=== PATIENT | male | born 1985 | race African-American/Black ===

== ENCOUNTER 2019-11-21 22:58 | Emergency (ER) | payer SELFPAY ==
[~2019-11-21] VITALS: Ht 165.1 cm; Wt 102.0 kg
[~2019-11-21 22:58] MED LIST: ALBU2.5V8 NEB; AMLO10TA8 PO; CLON0.3T PO; HYDR-2868 PO; LACT1CAP19 PO; LEVE500T56 PO; METO50TA6 PO
[2019-11-21 23:05] VITALS: BP 170/109
--- NOTE | 2019-11-21 23:13 | PHYS DOC ---
Past Medical History Past Medical History: Hypertension, Seizure Past Surgical History: No Surgical History Smoking Status: Current Every Day Smoker Alcohol Use: None Drug Use: Marijuana Adult General Chief Complaint Chief Complaint: HAND PROBLEM HPI HPI Patient is a 34-year-old male with right hand pain. He states he thinks he injured his hand playing with his dog 25 hours ago. He states the swelling is going down some but not completely. He states it used to bother his thumb now just bothers the spacing between his thumb and index finger. He denies any other injury. He used ice and Epsom salt at home to help with the symptoms. He is also use Tylenol.[] Review of Systems Review of Systems Constitutional: Denies fever or chills [] Eyes: Denies change in visual acuity, redness, or eye pain [] HENT: Denies nasal congestion or sore throat [] Respiratory: Denies cough or shortness of breath [] Cardiovascular: No additional information not addressed in HPI [] GI: Denies abdominal pain, nausea, vomiting, bloody stools or diarrhea [] : Denies dysuria or hematuria [] Musculoskeletal: Per history of present illness] Integument: Denies rash or skin lesions [] Neurologic: Denies headache, focal weakness or sensory changes [] Endocrine: Denies polyuria or polydipsia [] All other systems were reviewed and found to be within normal limits, except as documented in this note. Allergies Allergies Allergies Coded Allergies Type Severity Reaction Last Updated Verified No Known Drug Allergies 07/26/19 No Physical Exam Physical Exam Constitutional: Well developed, well nourished, no acute distress, non-toxic appearance. [] HENT: Normocephalic, atraumatic, bilateral external ears normal, oropharynx moist, no oral exudates, nose normal. [] Eyes: PERRLA, EOMI, conjunctiva normal, no discharge. [] Neck: Normal range of motion, no tenderness, supple, no stridor. [] Cardiovascular:Heart rate regular rhythm, no murmur [] Lungs & Thorax: Bilateral breath sounds clear to auscultation [] Abdomen: Bowel sounds normal, soft, no tenderness, no masses, no pulsatile masses. [] Skin: Warm, dry, no erythema, no rash. [] Back: No tenderness, no CVA tenderness. [] Extremities: After examining the right hand I do not see any significant abnormality including swelling deformity erythema or ecchymosis[] Neurologic: Alert and oriented X 3, normal motor function, normal sensory function, no focal deficits noted. [] Psychologic: Affect normal, judgement normal, mood normal. [] EKG EKG [] Radiology/Procedures Radiology/Procedures [] Course & Med Decision Making Course & Med Decision Making Pertinent Labs and Imaging studies reviewed. (See chart for details) [] Dragon Disclaimer Dragon Disclaimer This electronic medical record was generated, in whole or in part, using a voice recognition dictation system. Departure Departure Impression: Primary Impression: Sprain of right hand Disposition: HOME, SELF-CARE Condition: STABLE Referrals: LIU HUSSEIN JR, MD (PCP) Patient Instructions: Sprain Additional Instructions: Continue to use ice and ibuprofen as needed. Problem Qualifiers Primary Impression: Sprain of right hand Encounter type: initial encounter Qualified Codes: S63.91XA - Sprain of unspecified part of right wrist and hand, initial encounter GONZALES WRIGHT DO Nov 21, 2019 23:13
== END 2019-11-21 23:18 | disposition home or self-care (01) ==
LOC: ER 22:58
DX: S63.91XA Sprain of unspecified part of right wrist and hand, initial encounter (principal); F17.200 Nicotine dependence, unspecified, uncomplicated; X58.XXXA Exposure to other specified factors, initial encounter; Y93.89 Activity, other specified; Y92.098 Other place in other non-institutional residence as the place of occurrence of the external cause
CPT/HCPCS: 99283-25

== ENCOUNTER 2019-12-29 12:50 | Emergency (ER) | payer SELFPAY ==
[~2019-12-29] VITALS: Ht 175.3 cm; Wt 113.6 kg
[2019-12-29 13:19] LABS: BASO # 0.1 x10^3/uL (0.0-0.2); BASO % 1 % (0-3); EOS # 0.1 x10^3/uL (0.0-0.7); EOS % 1 % (0-3); HEMATOCRIT 49.3 % (39.0-53.0); LYMPH # 3.5 x10^3/uL (1.0-4.8); LYMPH % 29 % (24-48); MEAN CORPUSCULAR HEMOGLOBIN 21 pg (25-35); MEAN CORPUSCULAR HGB CONC 31 g/dL (31-37); MEAN CORPUSCULAR VOLUME 69 fL (79-100); MONO # 1.1 x10^3/uL (0.0-1.1); MONO % 9 % (0-9); NEUT # 7.1 x10^3/uL (1.8-7.7); NEUT % 60 % (31-73); PLATELET COUNT 254 x10^3/uL (140-400); RED BLOOD COUNT 7.19 x10^6/uL (4.30-5.70); WHITE BLOOD COUNT 11.9 x10^3/uL (4.0-11.0)
[2019-12-29 13:32] LABS: ALBUMIN 4.6 g/dL (3.4-5.0); CREATININE 1.5 mg/dL (0.7-1.3); GFR 64.8; POTASSIUM 3.3 mmol/L (3.5-5.1); TOTAL BILIRUBIN 0.8 mg/dL (0.2-1.0); TOTAL PROTEIN 9.2 g/dL (6.4-8.2)
[2019-12-29 13:33] LABS: BARBITURATES NEG (NEG); BENZODIAZEPINES NEG (NEG); CANNABINOIDS POS (NEG); COCAINE NEG (NEG); METHADONE NEG (NEG); OPIATES NEG (NEG); PHENCYCLIDINE NEG (NEG)
[2019-12-29 13:34] LABS: AMPHETAMINE/METHAMPHETAMINE NEG (NEG)
[2019-12-29 13:45] LABS: ANISOCYTOSIS SLIGHT; PLT ESTIMATE ADEQUATE (ADEQUATE)
[2019-12-29] MEDS ORDERED: IV NORMAL SALINE 1000ML BAG 1,000 ML IV ONE (13:45)
[2019-12-29 13:46] LABS: MICROCYTOSIS SLIGHT; POIKILOCYTOSIS SLIGHT
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
[2019-12-29 15:58] VITALS: BP 169/98
[2019-12-29 17:27] LABS: BASE EXCESS ABG -5 mmol/L (-3-3); HCO3 ABG 19 mmol/L (21-28); PCO2 ABG 33 mmHg (35-46); PO2 ABG 81 mmHg (85-108); SAT O2 ABG 96 % (92-99)
[2019-12-29 17:41] LABS: FIO2 ABG 21
== END 2019-12-29 16:00 | disposition home or self-care (01) ==
LOC: ER 12:50
DX: R56.9 Unspecified convulsions (principal); R41.0 Disorientation, unspecified; I10 Essential (primary) hypertension; F17.200 Nicotine dependence, unspecified, uncomplicated; F12.90 Cannabis use, unspecified, uncomplicated
CPT/HCPCS: 36415; 80053; 80307; 82805; 85025; 96361; 96374; 99285; J2060; J7030

== ENCOUNTER 2020-11-01 08:26 | Emergency (ER) | payer SELFPAY ==
[~2020-11-01] VITALS: Ht 172.7 cm; Wt 100.0 kg
[~2020-11-01 08:26] MED LIST changes: +AMLO-187 PO; -AMLO10TA8 PO
--- NOTE | 2020-11-01 08:39 | PHYS DOC ---
Past Medical History Past Medical History: Hypertension, Seizure Additional Past Medical Histor: PT POOR HISTORIAN Past Surgical History: No Surgical History Additional Past Surgical Histo: PT POOR HISTORIAN Smoking Status: Current Every Day Smoker Alcohol Use: None Drug Use: Marijuana General Adult HPI: HPI: 35 yo AA male past medical history of hypertension, seizure disorder on Keppra (since 2019), marijuana use with history of rhabdomyolysis in 2019, presents to the ED brought in by EMS after mother called 911, concern for witnessed seizure that lasted for approximately 2 minutes, with postictal by EMS. In ED patient complains of a headache and states " help me." Is restless and stands in ed room to void. Knows where he's at but cannot state month/year. Smells of thc but denies alcohol or drug use. Review of Systems: Review of Systems: Constitutional: Denies fever or chills. [] Eyes: Denies change in visual acuity. [] HENT: Denies nasal congestion or sore throat. [] Respiratory: Denies cough or shortness of breath. [] Cardiovascular: Denies chest pain or edema. [] GI: Denies abdominal pain, nausea, vomiting, bloody stools or diarrhea. [] : Denies dysuria. [] Musculoskeletal: Denies back pain or joint pain. [] Integument: Denies rash, or skin color changes Neurologic: Denies neck stiffness or pain, focal weakness or sensory changes. [] Endocrine: Denies polyuria or polydipsia. [] Lymphatic: Denies swollen glands. [] Psychiatric: Denies depression or anxiety. [] Heart Score: C/O Chest Pain: No Risk Factors: Risk Factors: DM, Current or recent (<one month) smoker, HTN, HLP, family history of CAD, obesity. Risk Scores: Score 0 - 3: 2.5% MACE over next 6 weeks - Discharge Home Score 4 - 6: 20.3% MACE over next 6 weeks - Admit for Clinical Observation Score 7 - 10: 72.7% MACE over next 6 weeks - Early Invasive Strategies Allergies: Allergies: Allergies Coded Allergies Type Severity Reaction Last Updated Verified No Known Drug Allergies 07/26/19 No Physical Exam: PE: Constitutional: restless.constantly moving in ed-requires verbal re-direction, trying to sleep once in stretcher, not the most cooperative but eventually responds to commands HENT: Normocephalic, atraumatic, moist mucous membranes with no oral lacerations Eyes: pupils 4mm and reaction bl, EOMI, conjunctiva normal, no discharge. Neck: Normal range of motion, supple, Cardiovascular: S1/2 present, tachycardic Lungs & Thorax: Speaking in full sentences, bilateral equal chest rise, no tachypnea or increased work of breathing Abdomen: soft, no tenderness, obese, no urinary or bowel incontinence Skin: Warm, no rash, diaphoretic forehead/neck Back: No midline tenderness, no CVA tenderness. [] Extremities: No tenderness, no cyanosis, no lower extremity edema Neurologic: Alert, normal motor function, normal sensory function, no focal deficits noted. [] Psychologic: Affect normal, calm mood : yellow clear urine, no gross blood EKG: EKG: Sinus tachycardia 108 bpm, no axis deviation, QTC prolonged 459, T wave inversion lead III, no ST elevations or ST depressions, S1Q3T3 present Radiology/Procedures: Radiology/Procedures: Signed PATIENT: DARYL VENTURA EACCOUNT: [id number] : 1985 LOCATION: ER AGE: 35 SEX: M EXAM STATUS: PRE ER ORD. PHYSICIAN: HERNANDO COTTRELL DO REASON: seizure PROCEDURE: PORTABLE CHEST 1V AP chest. HISTORY: Seizure AP view was taken of the chest. There is no pneumothorax or pleural effusion. Lungs are clear. Heart is normal in size. IMPRESSION: 1. No acute chest disease. Electronically signed by: Cj Nichole MD (11/01/2020 8:56 AM) [id number] DICTATED and SIGNED BY: CJ NICHOLE MD DATE: 11/01/20 [id number] 0 IMAGING REPORT Signed PATIENT: DARLY VENTURA EACCOUNT: [id number] : 1985 LOCATION: ER AGE: 35 SEX: M EXAM STATUS: REG ER ORD. PHYSICIAN: HERNANDO COTTRELL DO REASON: headache PROCEDURE: CT HEAD WO CONTRAST EXAM: CT head without contrast INDICATION: Headache COMPARISON: CT head 07/26/2019 TECHNIQUE: Axial CT imaging through the head without intravenous contrast. One or more of the following individualized dose reduction techniques were utilized for this examination: 1. Automated exposure control 2. Adjustment of the mA and/or kV according to patient size 3. Use of iterative reconstruction technique. FINDINGS: No intracranial hemorrhage, acute infarct, or mass lesion. The ventricles and sulci are normal. Calvarium is intact. The visualized paranasal sinuses and mastoid air cells are clear. Globes and orbits are intact. IMPRESSION: No acute intracranial abnormality. Electronically signed by: Shonna Whitney MD (11/01/2020 9:31 AM) [id number] DICTATED and SIGNED BY: SHONNA WHITNEY MD DATE: 11/01/20 [id number] 0 Course & Med Decision Making: Course & Med Decision Making Pertinent Labs and Imaging studies reviewed. (See chart for details) Labs show CKD, creatinine prior was 1.4 more than 6 months ago. CK slightly elevated in the 600s. No leukocytosis. Marijuana positive on drug screen. AG 18 with LA. Bicarb 20. Hyperglycemia. 3L NS bolus and keppra given in ed. will discharge home with strict ED return precautions were given for []. Encouraged urgent outpatient follow-up with PMD and neurology. Life-threatening processes were considered but are low suspicion at this time, given history, physical exam and ED workup. Pt was educated on all prescription medications and adverse effects. All patient's questions were answered and pt was stable at time of discharge. Life/limb-threatening differential includes but is not limited to, intracranial hemorrhage, diffuse axonal injury, spinal cord syndrome, unstable cervical fracture or SCIWORA, fractures or joint dislocations, neurovascular injuries, organ injury or laceration, pneumothorax, pneumoperitoneum, pericardial tamponade, unstable pelvic fracture, compartment syndrome, flail chest or respiratory distress, burn injury or asphyxiation I spoken with the patient and her caregivers. I explained the patient's condition, diagnoses and treatment plan based on the information available to me at this time. I have answered the patient and her caregiver's questions and addressed any concerns. The patient and her caregivers have a good understanding of patient's diagnosis, condition and treatment plan as can be expected at this point. Vital signs have been stable. Patient's condition is stable and appropriate for discharge from the emergency department. Patient will pursue further outpatient evaluation with primary care physician or other designated or consulting physician as outlined in the discharge instructions. The patient and/or caregivers are agreeable to this plan of care and follow-up instructions have been explained in detail. The patient and/or caregivers have received these instructions in written form and have expressed an understanding of the discharge instructions. The patient and/or caregivers are aware that any significant change of condition or worsening of symptoms should prompt immediate return to this or the closest emergency department or call to 1. Rohit Disclaimer: Rohit Disclaimer: This electronic medical record was generated, in whole or in part, using a voice recognition dictation system. Departure Departure Impression: Primary Impression: Seizure disorder Additional Impression: Marijuana use Disposition: 01 DC HOME SELF CARE/HOMELESS Condition: STABLE Referrals: LIU HUSSEIN JR, MD (PCP) within 1-3 days for re-evaluation Patient Instructions: Marijuana Abuse-Brief, Seizure, Adult Additional Instructions: FOLLOW UP WITH NEUROLOGY: For seizure disorder management [facility] Address: [address] [place] [address] EMERGENCY DEPARTMENT GENERAL DISCHARGE INSTRUCTIONS Thank you for coming to [facility] Emergency Department (ED) today and trusting us with you care. We trust that you had a positive experience in our Emergency Department. If you wish to speak to the department management, you may call the Director at [phone]. YOUR FOLLOW UP INSTRUCTIONS ARE FOLLOWS: 1. Do you have a private Doctor? If you do not have a private doctor, please ask for a resource list of physicians or clinics that may be able to assist you with follow up care. 2. The Emergency Physicain has interpreted your x-rays. The X-Ray specialist will also review them. If there is a change in the findings, you will be notified in 48 hours when at all possible. 3. A lab test or culture has been done, your results will be reviewed and you will be notified if you need a change in treatment. ADDITIONAL INSTRUCTIONS AND INFORMATION: 1. Your care today has been supervised by a physician who is specially trained in emergency care. Many problems require more than one evaluation for a complete diagnosis and treatment. We recommend that you schedule your follow up appointment as recommended to ensure complete treatment of you illness or injury. If you are unable to obtain follow up care and continue to have a problem, or if your condition worsens, we recommend that you return to the ED. 2. We are not able to safely determine your condition over the phone nor are we able to give sound medical advice over the phone. For these safety reasons, if you call for medical advice we will ask you to come to the ED for further evaluation. 3. If you have any questions regarding these discharge instructions please call the ED at [phone]. SAFETY INFORMATION: In the interest of safety, wellness, and injury prevention; we encourage you to wear your sealbelt, if you smoke; quite smoking, and we encourage family to use a protective helmet for bicycling and other sporting events that present an increased risk for head injury. IF YOUR SYMPTOMS WORSEN OR NEW SYMPTOMS DEVELOP, OR YOU HAVE CONCERNS ABOUT YOUR CONDITION; OR IF YOUR CONDITION WORSENS WHILE YOU ARE WAITING FOR YOUR FOLLOW UP APPOINTMENT; EITHER CONTACT YOUR PRIMARY CARE DOCTOR, THE PHYSICIAN WHOSE NAME AND NUMBER YOU WERE GIVEN, OR RETURN TO THE ED IMMEDIATELY. [facility]ITAL[facility]NAND[facility] DO Nov 01, 2020 08:39
[2020-11-01] MEDS ORDERED: IV NORMAL SALINE 1000ML BAG 1,000 ML IV ONE ×3 (08:45→10:00)
--- NOTE | 2020-11-01 08:59 | RAD ---
AP chest. HISTORY: Seizure AP view was taken of the chest. There is no pneumothorax or pleural effusion. Lungs are clear. Heart is normal in size. IMPRESSION: 1. No acute chest disease. Electronically signed by: Cj Nichole MD (11/01/2020 8:56 AM) [id number]
[2020-11-01] MEDS ORDERED: PROCHLORPERAZINE 10 MG/2 ML VIAL. IV ONE (09:00)
[2020-11-01] MEDS ORDERED: DEXAMETHASONE SOD PHOS 20 MG/5 ML VIAL. IV ONE (09:00)
[2020-11-01] MEDS ORDERED: diphenhydrAMINE 50 MG/ML VIAL IVP ONE (09:00)
[2020-11-01] MEDS ORDERED: levETIRAcetam 1,000 MG in IV DEXTROSE 5% 100ML 100 ML IV ONE (09:00)
[2020-11-01 09:20] LABS: BASO # 0.1 x10^3/uL (0.0-0.2); BASO % 1 % (0-3); EOS # 0.2 x10^3/uL (0.0-0.7); EOS % 2 % (0-3); HEMATOCRIT 44.9 % (39.0-53.0); HEMOGLOBIN 14.2 g/dL (13.0-17.5); LYMPH # 2.1 x10^3/uL (1.0-4.8); LYMPH % 20 % (24-48); MEAN CORPUSCULAR HEMOGLOBIN 21 pg (25-35); MEAN CORPUSCULAR HGB CONC 32 g/dL (31-37); MEAN CORPUSCULAR VOLUME 68 fL (79-100); MONO # 0.9 x10^3/uL (0.0-1.1); MONO % 8 % (0-9); NEUT # 7.2 x10^3/uL (1.8-7.7); NEUT % 69 % (31-73); PLATELET COUNT 203 x10^3/uL (140-400); RED BLOOD COUNT 6.62 x10^6/uL (4.30-5.70); RED CELL DISTRIBUTION WIDTH 16.5 % (11.5-14.5); WHITE BLOOD COUNT 10.4 x10^3/uL (4.0-11.0)
[2020-11-01 09:22] LABS: BILIRUBIN,URINE NEGATIVE (NEG); CLARITY,URINE CLEAR; COLOR,URINE YELLOW; NITRITE,URINE NEGATIVE (NEG); PH,URINE 6.5 (<5.0-8.0); PROTEIN,URINE 100 mg/dL (NEG-TRACE); UROBILINOGEN,URINE 0.2 mg/dL (0.2 mg/dL)
[2020-11-01 09:27] LABS: BACTERIA,URINE 0 /HPF (0-FEW); RBC,URINE 0 /HPF (0-2); WBC,URINE 0 /HPF (0-4)
[2020-11-01 09:32] LABS: BARBITURATES NEG (NEG); BENZODIAZEPINES NEG (NEG); CANNABINOIDS POS (NEG); COCAINE NEG (NEG); METHADONE NEG (NEG); OPIATES NEG (NEG); PHENCYCLIDINE NEG (NEG)
[2020-11-01 09:33] LABS: AMPHETAMINE/METHAMPHETAMINE NEG (NEG)
--- NOTE | 2020-11-01 09:33 | RAD ---
EXAM: CT head without contrast INDICATION: Headache COMPARISON: CT head 07/26/2019 TECHNIQUE: Axial CT imaging through the head without intravenous contrast. One or more of the following individualized dose reduction techniques were utilized for this examinat ion: 1. Automated exposure control 2. Adjustment of the mA and/or kV according to patient size 3. Use of iterative reconstruction technique. FINDINGS: No intracranial hemorrhage, acute infarct, or mass lesion. The ventricles and sulci are normal. Karan rium is intact. The visualized paranasal sinuses and mastoid air cells are clear. Globes and orbits a re intact. IMPRESSION: No acute intracranial abnormality. Electronically signed by: Shonna Whitney MD (11/01/2020 9:31 AM) [id number]
[2020-11-01 09:35] LABS: CALCIUM 8.4 mg/dL (8.5-10.1); CREATININE 1.4 mg/dL (0.7-1.3); GFR 69.8; POTASSIUM 3.5 mmol/L (3.5-5.1)
[2020-11-01 09:41] LABS: ALBUMIN 4.3 g/dL (3.4-5.0); ALBUMIN/GLOBULIN RATIO 1.2 (1.0-1.7); MAGNESIUM 2.6 mg/dL (1.8-2.4); TOTAL BILIRUBIN 0.5 mg/dL (0.2-1.0); TOTAL PROTEIN 7.9 g/dL (6.4-8.2)
[2020-11-01 09:42] LABS: ANISOCYTOSIS SLIGHT; PLT ESTIMATE ADEQUATE (ADEQUATE)
--- NOTE | 2020-11-01 10:02 | EKG ---
[facility] [address] [place] [address] Test Date: 2020-11-01 Test Time: 09:14:55 Pat Name: DARYL VENTURA Department: Room: Gender: M High Value Associate: : 1985 Requested By: HERNANDO COTTRELL Order Number: [id number] Reading MD: Measurements Intervals [place] Rate: 108 P: 194 MA: 148 QRS: 89 QRSD: 90 T: 39 QT: 340 QTc: 459 Interpretive Statements SINUS TACHYCARDIA LEFT ATRIAL ABNORMALITY ABNORMAL ECG RI6.02 No previous ECG available for comparison
--- NOTE | 2020-11-01 11:40 | RAD ---
3 view study of the right shoulder Clinical indications: Right shoulder pain. FINDINGS: No acute fracture or dislocation or lytic process is evident. No AC joint separation is see n. 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 IMPRESSION: No acute osseous abnormality. Electronically signed by: Jatinder Salinas MD (11/01/2020 11:37 AM) [id number]
[2020-11-01 11:57] LABS: CALCIUM 7.7 mg/dL (8.5-10.1); CREATININE 1.1 mg/dL (0.7-1.3); GFR 92.2; POTASSIUM 3.6 mmol/L (3.5-5.1)
[2020-11-01 13:00] VITALS: BP 144/90
== END 2020-11-01 13:23 | disposition home or self-care (01) ==
LOC: ER 08:26
DX: G40.909 Epilepsy, unspecified, not intractable, without status epilepticus (principal); I10 Essential (primary) hypertension; F17.200 Nicotine dependence, unspecified, uncomplicated
CPT/HCPCS: 36415; 70450; 71045; 73030; 80048; 80053; 80307; 81001; 82550; 82962; 83605; 83735; 84484; 85025; 87040; 93005; 96361; 96365; 96375; 99285; G0480; J0780; J1100; J1200; J1953; J7030; J7060

== ENCOUNTER 2021-04-06 10:17 | Emergency (ER) | payer MEDICAID ==
[~2021-04-06] VITALS: Ht 165.1 cm; Wt 101.0 kg
--- NOTE | 2021-04-06 11:38 | RAD ---
INDICATION: Reason: cough / Spl. Instructions: / History: COMPARISON: November 01, 2020 FINDINGS: Single view of chest obtained. Cardiac silhouette is enlarged. Relative opacity at left lung base without consolidation elsewhere in the lungs. IMPRESSION: * Enlarged cardiac silhouette. * Relative opacity at the left lung base which could be secondary to overlap of structures and atele ctasis but cannot exclude infiltrate within the region. No consolidation elsewhere in the lungs. Electronically signed by: Adarsh Javed MD (04/06/2021 11:36 AM) [id number]
[2021-04-06] MEDS ORDERED: ONDANSETRON PF 4 MG/2 ML VIAL. IVP ONE (12:00)
[2021-04-06] MEDS ORDERED: IV NORMAL SALINE 1000ML BAG 1,000 ML IV ONE (12:15)
[2021-04-06 13:15] LABS: BASO # 0.1 x10^3/uL (0.0-0.2); BASO % 1 % (0-3); EOS % 0 % (0-3); HEMATOCRIT 49.3 % (39.0-53.0); LYMPH # 0.9 x10^3/uL (1.0-4.8); LYMPH % 8 % (24-48); MEAN CORPUSCULAR HEMOGLOBIN 22 pg (25-35); MEAN CORPUSCULAR HGB CONC 33 g/dL (31-37); MEAN CORPUSCULAR VOLUME 67 fL (79-100); MONO # 0.5 x10^3/uL (0.0-1.1); MONO % 5 % (0-9); NEUT # 9.5 x10^3/uL (1.8-7.7); NEUT % 86 % (31-73); PLATELET COUNT 252 x10^3/uL (140-400); RED BLOOD COUNT 7.36 x10^6/uL (4.30-5.70); RED CELL DISTRIBUTION WIDTH 16.3 % (11.5-14.5)
[2021-04-06 13:22] LABS: CALCIUM 9.3 mg/dL (8.5-10.1); CREATININE 1.3 mg/dL (0.7-1.3); POTASSIUM 3.2 mmol/L (3.5-5.1)
[2021-04-06 13:37] LABS: ALBUMIN 4.8 g/dL (3.4-5.0); ALBUMIN/GLOBULIN RATIO 1.2 (1.0-1.7); TOTAL BILIRUBIN 0.7 mg/dL (0.2-1.0); TOTAL PROTEIN 8.9 g/dL (6.4-8.2)
[2021-04-06 13:45] LABS: INFLUENZA A PATIENT NEGATIVE (NEGATIVE)
[2021-04-06] MEDS ORDERED: IOHEXOL 300 MG/ML 100ML VIAL. IV ONE (13:45)
[2021-04-06] MEDS ORDERED: CONTRAST GIVEN. MC PRN (13:45)
[2021-04-06 13:46] LABS: INFLUENZA B PATIENT NEGATIVE (NEGATIVE)
[2021-04-06 13:59] LABS: BILIRUBIN,URINE NEGATIVE (NEG); CLARITY,URINE CLEAR; COLOR,URINE YELLOW; NITRITE,URINE NEGATIVE (NEG); PH,URINE 6.5 (<5.0-8.0); PROTEIN,URINE 100 mg/dL (NEG-TRACE); UROBILINOGEN,URINE 0.2 mg/dL (0.2 mg/dL)
[2021-04-06 14:08] LABS: BACTERIA,URINE 0 /HPF (0-FEW); RBC,URINE 0 /HPF (0-2); WBC,URINE OCC /HPF (0-4)
[2021-04-06] MEDS ORDERED: cloNIDine HCL 0.1 MG TABLET PO ONE (14:15)
[2021-04-06 14:18] LABS: % BANDS 2 % (0-9); % BASOS 1 % (0-3); % LYMPHS 7 % (24-48); % MONOS 5 % (0-10); % SEGS 85 % (35-66); PLT ESTIMATE ADEQUATE (ADEQUATE)
[2021-04-06 14:19] LABS: HYPOCHROMIA SLIGHT; MICROCYTOSIS MARKED
[2021-04-06 14:20] VITALS: BP 180/100
[2021-04-06 14:20] LABS: ANISOCYTOSIS SLIGHT; POLYCHROMASIA SLIGHT; TARGET CELLS FEW
--- NOTE | 2021-04-06 15:06 | RAD ---
INDICATION: Reason: abdominal pain, nausea, vomiting / Spl. Instructions: omni 300 75ml / History: . COMPARISON: None. TECHNIQUE: Axial CT images obtained through the abdomen and pelvis with contrast. One or more of the following individualized dose reduction techniques were utilized for this examinat ion: 1. Automated exposure control; 2. Adjustment of the mA and/or kV according to patient size; 3 . Use of iterative reconstruction technique. FINDINGS: Small hiatal hernia versus mild distention of the distal esophagus. Abdominal aorta is not aneurysmal. Liver is mildly low density which can be seen with fatty infiltration. No peripancreatic fluid collection. Spleen is unremarkable. There is some thickening of the left adrenal gland. Low-density lesion of the left kidney which does not measure as a simple cyst measuring approximately 18 mm. There is an additional subcentimeter left renal lesion which appears higher than simple density. Urinary bladder is partially distended. No hydronephrosis. Colonic diverticulosis. No periappendiceal inflammatory changes. There is some degenerative changes of the spine. Mild wedging of T11, T12 and L1. Transitional anatom y. IMPRESSION: * No evidence of bowel obstruction or appendicitis. * No hydronephrosis. * Low-density left renal lesions which do not measure as simple cyst. Nonemergent ultrasound could f urther evaluate to assess whether these are solid or cystic in nature. Electronically signed by: Adarsh Javed MD (04/06/2021 3:04 PM) [id number]
--- NOTE | 2021-04-06 15:46 | PHYS DOC ---
Past Medical History Past Medical History: Hypertension, Seizure Additional Past Medical Histor: PT POOR HISTORIAN Past Surgical History: No Surgical History, Other Additional Past Surgical Histo: Pt denies. Smoking Status: Current Every Day Smoker Alcohol Use: Occasionally Drug Use: Marijuana General Adult EDM: Chief Complaint: FLU SYMPTOM HPI: HPI: Patient is a 35 year old male who present to ER for evaluation of flulike symptoms when he woke up this morning. Patient complains of body aches, chills, cough. Patient was not vaccinated for COVID-19. Patient denies any chest pain or any trouble breathing. Patient also complained of nausea and abdominal pain. Patient has history of hypertension and seizure disorder, he is on Keppra and clonidine. Patient said he has been ran out of his clonidine for 3 days. Patient has prescription ready to sisal picker at pharmacy for his clonidine. Review of Systems: Review of Systems: Constitutional: Denies fever, positive chills Eyes: Denies change in visual acuity. [] HENT: Denies nasal congestion or sore throat. [] Respiratory: Positive for cough, no trouble breathing Cardiovascular: Denies chest pain or edema. [] GI: Positive for abdominal pain with nausea vomiting. : Denies dysuria. [] Musculoskeletal: Denies back pain or joint pain. [] Integument: Denies rash. [] Neurologic: Denies headache, focal weakness or sensory changes. [] Endocrine: Denies polyuria or polydipsia. [] Lymphatic: Denies swollen glands. [] Psychiatric: Denies depression or anxiety. [] Heart Score: C/O Chest Pain: N/A Risk Factors: Risk Factors: DM, Current or recent (<one month) smoker, HTN, HLP, family history of CAD, obesity. Risk Scores: Score 0 - 3: 2.5% MACE over next 6 weeks - Discharge Home Score 4 - 6: 20.3% MACE over next 6 weeks - Admit for Clinical Observation Score 7 - 10: 72.7% MACE over next 6 weeks - Early Invasive Strategies Current Medications: Current Medications Medications (Trade) Dose Ordered Sig/Adan Start Time Stop Time Status Last Admin Dose Admin Clonidine HCl (Catapres) 0.2 mg 1X ONCE 04/06/21 14:15 04/06/21 14:16 DC 04/06/21 14:20 0.2 MG Info (CONTRAST GIVEN -- Rx MONITORING) 1 each PRN DAILY PRN 04/06/21 13:45 04/08/21 13:44 Iohexol (Omnipaque 300 Mg/ml) 75 ml 1X ONCE 04/06/21 13:45 04/06/21 13:46 DC 04/06/21 13:45 75 ML Ondansetron HCl (Zofran) 4 mg 1X ONCE 04/06/21 12:00 04/06/21 12:01 DC 04/06/21 12:57 4 MG Sodium Chloride 1,000 ml @ 1,000 mls/hr 1X ONCE 04/06/21 12:15 04/06/21 13:14 DC 04/06/21 12:57 1,000 MLS/HR Allergies: Allergies: Allergies Coded Allergies Type Severity Reaction Last Updated Verified No Known Drug Allergies 07/26/19 No Physical Exam: PE: Constitutional: Well developed, well nourished, no acute distress, non-toxic appearance. [] HENT: Normocephalic, atraumatic, bilateral external ears normal, oropharynx moist, no oral exudates, nose normal. [] Eyes: PERRLA, EOMI, conjunctiva normal, no discharge. [] Neck: Normal range of motion, no tenderness, supple, no stridor. [] Cardiovascular:Heart rate regular rhythm, no murmur [] Lungs & Thorax: Bilateral breath sounds clear to auscultation [] Abdomen: Bowel sounds normal, soft, no tenderness, no masses, no pulsatile masses. [] Skin: Warm, diaphoresis, no rash Back: No tenderness, no CVA tenderness. [] Extremities: No tenderness, no cyanosis, no clubbing, ROM intact, no edema. [] Neurologic: Alert and oriented X 3, normal motor function, normal sensory function, no focal deficits noted. [] Psychologic: Affect normal, judgement normal, mood normal. [] Current Patient Data: Labs: Laboratory Tests Test 04/06/21 10:37 04/06/21 12:47 04/06/21 13:25 SARS-CoV-2 Antigen (Rapid) Negative (NEGATIVE) White Blood Count 11.0 x10^3/uL (4.0-11.0) Red Blood Count 7.36 x10^6/uL (4.30-5.70) H Hemoglobin 16.0 g/dL (13.0-17.5) Hematocrit 49.3 % (39.0-53.0) Mean Corpuscular Volume 67 fL (79-100) L Mean Corpuscular Hemoglobin 22 pg (25-35) L Mean Corpuscular Hemoglobin Concent 33 g/dL (31-37) Red Cell Distribution Width 16.3 % (11.5-14.5) H Platelet Count 252 x10^3/uL (140-400) Neutrophils (%) (Auto) 86 % (31-73) H Lymphocytes (%) (Auto) 8 % (24-48) L Monocytes (%) (Auto) 5 % (0-9) Eosinophils (%) (Auto) 0 % (0-3) Basophils (%) (Auto) 1 % (0-3) Neutrophils # (Auto) 9.5 x10^3/uL (1.8-7.7) H Lymphocytes # (Auto) 0.9 x10^3/uL (1.0-4.8) L Monocytes # (Auto) 0.5 x10^3/uL (0.0-1.1) Eosinophils # (Auto) 0.0 x10^3/uL (0.0-0.7) Basophils # (Auto) 0.1 x10^3/uL (0.0-0.2) Segmented Neutrophils % 85 % (35-66) H Band Neutrophils % 2 % (0-9) Lymphocytes % 7 % (24-48) L Monocytes % 5 % (0-10) Basophils % 1 % (0-3) Platelet Estimate Adequate (ADEQUATE) Polychromasia Slight Hypochromasia Slight Anisocytosis Slight Microcytosis Marked Target Cells Few Sodium Level 140 mmol/L (136-145) Potassium Level 3.2 mmol/L (3.5-5.1) L Chloride Level 102 mmol/L (98-107) Carbon Dioxide Level 26 mmol/L (21-32) Anion Gap 12 (6-14) Blood Urea Nitrogen 14 mg/dL (8-26) Creatinine 1.3 mg/dL (0.7-1.3) Estimated GFR (Cockcroft-Gault) 76.0 BUN/Creatinine Ratio 11 (6-20) Glucose Level 158 mg/dL (70-99) H Calcium Level 9.3 mg/dL (8.5-10.1) Total Bilirubin 0.7 mg/dL (0.2-1.0) Aspartate Amino Transferase (AST) 25 U/L (15-37) Alanine Aminotransferase (ALT) 41 U/L (16-63) Alkaline Phosphatase 92 U/L (46-116) Total Protein 8.9 g/dL (6.4-8.2) H Albumin 4.8 g/dL (3.4-5.0) Albumin/Globulin Ratio 1.2 (1.0-1.7) Lipase 205 U/L (73-393) Influenza Type A Antigen Negative (NEGATIVE) Influenza Type B Antigen Negative (NEGATIVE) Urine Collection Type Unknown Urine Color Yellow Urine Clarity Clear Urine pH 6.5 (<5.0-8.0) Urine Specific [place] 1.020 (1.000-1.030) Urine Protein 100 mg/dL (NEG-TRACE) Urine Glucose (UA) Negative mg/dL (NEG) Urine Ketones (Stick) Negative mg/dL (NEG) Urine Blood Negative (NEG) Urine Nitrite Negative (NEG) Urine Bilirubin Negative (NEG) Urine Urobilinogen Dipstick 0.2 mg/dL (0.2 mg/dL) Urine Leukocyte Esterase Negative (NEG) Urine RBC 0 /HPF (0-2) Urine WBC Occ /HPF (0-4) Urine Squamous Epithelial Cells Few /LPF Urine Bacteria 0 /HPF (0-FEW) Urine Mucus Mod /LPF Laboratory Tests 04/06/21 12:47 Laboratory Tests 04/06/21 12:47 Vital Signs: Vital Signs Date Time Temp Pulse Resp B/P (MAP) Pulse Ox O2 Delivery O2 Flow Rate FiO2 04/06/21 14:20 78 180/100 04/06/21 14:08 24 100 Room Air 04/06/21 10:30 98.3 98.3 EKG: EKG: [] Radiology/Procedures: Radiology/Procedures: [][facility] [address] [place] [address] IMAGING REPORT Signed PATIENT: DARYL VENTURA EACCOUNT: [id number] : 1985 LOCATION: ER AGE: 35 SEX: M EXAM STATUS: REG ER ORD. PHYSICIAN: MINNIE TUCKER DO REASON: abdominal pain, nausea, vomiting PROCEDURE: CT ABD PELV W/ IV CONTRST ONLY INDICATION: Reason: abdominal pain, nausea, vomiting / Spl. Instructions: omni 300 75ml / History: . COMPARISON: None. TECHNIQUE: Axial CT images obtained through the abdomen and pelvis with contrast. One or more of the following individualized dose reduction techniques were utilized for this examination: 1. Automated exposure control; 2. Adjustment of the mA and/or kV according to patient size; 3. Use of iterative reconstruction technique. FINDINGS: Small hiatal hernia versus mild distention of the distal esophagus. Abdominal aorta is not aneurysmal. Liver is mildly low density which can be seen with fatty infiltration. No peripancreatic fluid collection. Spleen is unremarkable. There is some thickening of the left adrenal gland. Low-density lesion of the left kidney which does not measure as a simple cyst measuring approximately 18 mm. There is an additional subcentimeter left renal lesion which appears higher than simple density. Urinary bladder is partially distended. No hydronephrosis. Colonic diverticulosis. No periappendiceal inflammatory changes. There is some degenerative changes of the spine. Mild wedging of T11, T12 and L1. Transitional anatomy. IMPRESSION: * No evidence of bowel obstruction or appendicitis. * No hydronephrosis. * Low-density left renal lesions which do not measure as simple cyst. Nonemergent ultrasound could further evaluate to assess whether these are solid or cystic in nature. Electronically signed by: Mariel Branch MD (04/06/2021 3:04 PM) [id number] DICTATED and SIGNED BY: MARIEL BRANCH MD DATE: 04/06/21 [id number] [facility] [address] [place] [address] IMAGING REPORT Signed PATIENT: DARYL VENTURA EACCOUNT: [id number] : 1985 LOCATION: ER AGE: 35 SEX: M EXAM STATUS: REG ER ORD. PHYSICIAN: MINNIE TUCKER DO REASON: cough PROCEDURE: CHEST AP ONLY INDICATION: Reason: cough / Spl. Instructions: / History: COMPARISON: November 01, 2020 FINDINGS: Single view of chest obtained. Cardiac silhouette is enlarged. Relative opacity at left lung base without consolidation elsewhere in the lungs. IMPRESSION: * Enlarged cardiac silhouette. * Relative opacity at the left lung base which could be secondary to overlap of structures and atelectasis but cannot exclude infiltrate within the region. No consolidation elsewhere in the lungs. Electronically signed by: Mariel Branch MD (04/06/2021 11:36 AM) DESKTOP- [id number] DICTATED and SIGNED BY: MARIEL BRANCH MD DATE: 04/06/21 [id number] 0 Course & Med Decision Making: Course & Med Decision Making Pertinent Labs and Imaging studies reviewed. (See chart for details) Patient is a 35-year-old male who present to ER with cough, chills, flulike symptoms, nausea vomiting and abdominal pain with sweating profusely. Patient is most likely withdrawal from clonidine. His blood pressure was elevated in the ED, patient was given 0.2 mg clonidine p.o. Patient said he felt much better. Patient would like to go home. Patient said he is going to sisal picker prescription for the Klonopin at the pharmacy. Dragon Disclaimer: Dragon Disclaimer: This electronic medical record was generated, in whole or in part, using a voice recognition dictation system. Departure Departure Impression: Primary Impression: Abdominal pain Additional Impressions: Hypertension Person under investigation for COVID-19 Disposition: HOME / SELF CARE / HOMELESS Condition: STABLE Referrals: LIU HUSSEIN JR, MD (PCP) Follow up with your doctor on SATURDAY FOR REEVALUATION Patient Instructions: Abdominal Pain, Hypertension Additional Instructions: Thank you for visiting our Emergency Department. We appreciate you trusting us with your care. If any additional problems come up don't hesitate to return to visit us. Please follow up with your primary care provider so they can plan additional care if needed and know about the problem that you had. If symptoms worsen come back to the Emergency Department. Any concerning symptoms that start such as chest pain, shortness of air, weakness or numbness on one side of the body, running high fevers or any other concerning symptoms return to the ER. MINNIE TUCKER DO Apr 06, 2021 15:46
--- NOTE | 2021-04-08 12:59 | NUR ---
IP: Have attempted to reach pt concerning covid results on 04/07 and 04/08 multiple times and always get a busy signal.
== END 2021-04-06 16:17 | disposition home or self-care (01) ==
LOC: ER 10:17
DX: R10.9 Unspecified abdominal pain (principal); Z20.822 Contact with and (suspected) exposure to COVID-19; R05 Cough; I10 Essential (primary) hypertension; M79.10 Myalgia, unspecified site; F17.200 Nicotine dependence, unspecified, uncomplicated
CPT/HCPCS: 36415; 71045; 74177; 80053; 80177; 81001; 83690; 85007; 85025; 87426; 87804; 96361; 96374; 99285; J2405; J7030; Q9967; U0003; U0005

== ENCOUNTER 2021-06-18 12:33 | Emergency (ER) | payer MEDICAID ==
[~2021-06-18] VITALS: Ht 175.3 cm; Wt 110.0 kg
--- NOTE | 2021-06-18 12:56 | PHYS DOC ---
Past Medical History Past Medical History: Hypertension, Seizure Additional Past Medical Histor: PT POOR HISTORIAN Past Surgical History: No Surgical History Additional Past Surgical Histo: Pt denies. Smoking Status: Current Every Day Smoker Alcohol Use: None Drug Use: Marijuana General Adult EDM: Chief Complaint: SEIZURE HPI: HPI: 36-year-old male past medical history of seizure disorder, presents the ED with his sister, (patient consents to his/her/their knowledge and involvement in pts' medical care), concern for seizure for approximately 3 minutes. Reports he took his blood pressure and seizure medicination (Keppra) earlier this morning but does report smoking marijuana recently. Later reports no acute alcohol use last night, "ray/tequila." Review of Systems: Review of Systems: Constitutional: Denies fever or chills. [] Eyes: Denies change in visual acuity. [] HENT: Denies nasal congestion or sore throat. [] Respiratory: Denies cough or shortness of breath. [] Cardiovascular: Denies chest pain or edema. [] GI: Denies abdominal pain, nausea, vomiting, bloody stools or diarrhea. [] : Denies incontinence or saddle anesthesia Musculoskeletal: Denies back pain or joint pain. [] Integument: Denies rash or diaphoresis Neurologic: Denies headache, neck pain, focal weakness or sensory changes. [] Endocrine: Denies polyuria or polydipsia. [] Lymphatic: Denies swollen glands. [] Psychiatric: Denies depression or anxiety. [] Heart Score: C/O Chest Pain: No Risk Factors: Risk Factors: DM, Current or recent (<one month) smoker, HTN, HLP, family history of CAD, obesity. Risk Scores: Score 0 - 3: 2.5% MACE over next 6 weeks - Discharge Home Score 4 - 6: 20.3% MACE over next 6 weeks - Admit for Clinical Observation Score 7 - 10: 72.7% MACE over next 6 weeks - Early Invasive Strategies Allergies: Allergies: Allergies Coded Allergies Type Severity Reaction Last Updated Verified No Known Drug Allergies 06/18/21 No Physical Exam: PE: Constitutional: Well developed, well nourished, no acute distress, non-toxic appearance, hypertensive on arrival HENT: Normocephalic, atraumatic, no oral bleeding or tongue lacerations Eyes: EOMI, conjunctiva normal, no discharge. Neck: Normal range of motion, supple,Nexus C-spine criteria are negative: There is no post midline tenderness, the patient is not intoxicated, there is a normal level of alertness, there are no focal neurologic deficits and there are no distracting injuries Cardiovascular: S1/2 present, regular rhythm Lungs & Thorax: Speaking in full sentences, bilateral equal chest rise, no ta chypnea or increased work of breathing Abdomen: soft, no tenderness, no incontinence Skin: Warm, dry, no erythema, no rash. [] Back: No midline spinal step-offs or tenderness, no CVA tenderness. [] Extremities: No tenderness, no cyanosis, no lower extremity edema Neurologic: Alert and oriented X 3, normal motor function, normal sensory function, no focal deficits noted. [] Psychologic: Affect normal, judgement normal, mood normal. [] Current Patient Data: Vital Signs: Vital Signs Date Time Temp Pulse Resp B/P (MAP) Pulse Ox O2 Delivery O2 Flow Rate FiO2 06/18/21 12:41 98.7 100 19 203/120 (147) 100 Room Air 98.7 EKG: EKG: [] Radiology/Procedures: Radiology/Procedures: IMAGING REPORT Signed PATIENT: DARYL VENTURA EACCOUNT: [id number] : 1985 LOCATION: ER AGE: 36 SEX: M EXAM STATUS: PRE ER ORD. PHYSICIAN: HERNANDO COTTRELL DO REASON: headache PROCEDURE: CHEST AP ONLY EXAM: Chest, single view. HISTORY: Headache. COMPARISON: 04/06/2021. FINDINGS: A frontal view of the chest is obtained. There is no infiltrate, pleural effusion or pneumothorax. The heart is normal in size. IMPRESSION: No acute pulmonary finding. Electronically signed by: Skylar Macdonald MD (06/18/2021 1:11 PM) [id number] DICTATED and SIGNED BY: SKYLAR MACDONALD MD DATE: 06/18/21 [id number] 0 IMAGING REPORT Signed PATIENT: DARYL VENTURA EACCOUNT: [id number] : 1985 LOCATION: ER AGE: 36 SEX: M EXAM STATUS: PRE ER ORD. PHYSICIAN: HERNANDO COTTRELL DO REASON: seizure, high bp PROCEDURE: CT HEAD WO CONTRAST CT head without contrast dated 06/18/2021 1:22 PM Comparison: 11/01/2020 CLINICAL INDICATION: Seizure TECHNIQUE: Contiguous axial imaging of the head was performed from skull base to vertex. One or more of the following individualized dose reduction techniques were utilized for this examination: 1. Automated exposure control 2. Adjustment of the mA and/or kV according to patient size 3. Use of iterative reconstruction technique. FINDINGS: Ventricles and sulci are within normal limits for age. No midline shift or mass effect. Brain parenchyma is of normal attenuation. No hemorrhage or extra-axial collection. Posterior fossa and brainstem unremarkable. Visualized paranasal sinuses and mastoid air cells are clear. No apparent calvarial abnormality. IMPRESSION: No evidence of acute intracranial abnormality. Electronically signed by: Bolivar Davis MD (06/18/2021 1:25 PM) [id number] DICTATED and SIGNED BY: BOLIVAR DAVIS MD DATE: 06/18/21 [id number] Course & Med Decision Making: Course & Med Decision Making Pertinent Labs and Imaging studies reviewed. (See chart for details) Concern for breakthrough seizure likely related to recent substance abuse inc luding alcohol and marijuana in the setting of chronic renal insufficiency and nonspecific leukocytosis. Anion gap likely related to an elevated lactic acid from recent seizure. Glucose under 200. On reevaluation patient smiling, laughing and admits to drinking alcohol heavily last night. Patient with no active pain or distress. Did not hit his head. I discouraged substance abuse and explained how it decreases seizure threshold. Will discharge home with strict ED return precautions were given for head trauma, repeat seizures, confusion or neurologic deficits. Encouraged urgent outpatient follow-up with PMD, neurology and nephrology. Life-threatening processes were considered but are low suspicion at this time, given history, physical exam and ED workup. Pt was educated on all prescription medications and adverse effects. All patient's questions were answered and pt was stable at time of discharge. Life/limb-threatening differential includes but is not limited to, intracranial hemorrhage, diffuse axonal injury, spinal cord syndrome, unstable cervical fracture or SCIWORA, fractures or joint dislocations, neurovascular injuries, organ injury or laceration, pneumothorax, pneumoperitoneum, pericardial tamponade, unstable pelvic fracture, compartment syndrome, flail chest or respiratory distress, burn injury or asphyxiation I have spoken with the patient and/or caregivers. I explained the patient's condition, diagnoses and treatment plan based on the information available to me at this time. I have answered the patient and/or caregiver's questions and addressed any concerns. The patient and/or caregivers have a good understanding of patient's diagnosis, condition and treatment plan as can be expected at this point. Vital signs have been stable. Patient's condition is stable and appropriate for discharge from the emergency department. Patient will pursue further outpatient evaluation with primary care physician or other designated or consulting physician as outlined in the discharge instructions. The patient and/or caregivers are agreeable to this plan of care and follow-up instructions have been explained in detail. The patient and/or caregivers have received these instructions in written form and have expressed an understanding of the discharge instructions. The patient and/or caregivers are aware that any significant change of condition or worsening of symptoms should prompt immediate return to this or the closest emergency department or call to [facility]. Rohit Disclaimer: Rohit Disclaimer: This electronic medical record was generated, in whole or in part, using a voice recognition dictation system. Departure Departure Impression: Primary Impression: Seizure Additional Impressions: Renal insufficiency Uncontrolled hypertension Disposition: 01 HOME / SELF CARE / HOMELESS Condition: STABLE Referrals: LIU HUSSEIN JR, MD (PCP) Follow-up with your primary care physician in 24 to 48 hours OR FOLLOW UP WITH FAMILY MEDICINE: [address] [facility] [address] [place] [address] Patient Instructions: Hypertension, Kidney Failure, Seizure, Adult Additional Instructions: FOLLOW UP WITH NEUROLOGY: FOR DEFINITIVE MANAGEMENT of epilepsy [facility] [address] [facility], [facility] [address] [place] [address] FOLLOW UP WITH NEPHROLOGY: FOR DEFINITIVE MANAGEMENTof renal disease [facility] [place] [address] [place] [address] EMERGENCY DEPARTMENT GENERAL DISCHARGE INSTRUCTIONS Thank you for coming to [facility] Emergency Department (ED) today and trusting us with you care. We trust that you had a positive experience in our Emergency Department. If you wish to speak to the department management, you may call the Director at [phone]. YOUR FOLLOW UP INSTRUCTIONS ARE FOLLOWS: 1. Do you have a private Doctor? If you do not have a private doctor, please ask for a resource list of physicians or clinics that may be able to assist you with follow up care. 2. The Emergency Physicain has interpreted your x-rays. The X-Ray specialist will also review them. If there is a change in the findings, you will be notified in 48 hours when at all possible. 3. A lab test or culture has been done, your results will be reviewed and you will be notified if you need a change in treatment. ADDITIONAL INSTRUCTIONS AND INFORMATION: 1. Your care today has been supervised by a physician who is specially trained in emergency care. Many problems require more than one evaluation for a complete diagnosis and treatment. We recommend that you schedule your follow up appointment as recommended to ensure complete treatment of you illness or injury. If you are unable to obtain follow up care and continue to have a problem, or if your condition worsens, we recommend that you return to the ED. 2. We are not able to safely determine your condition over the phone nor are we able to give sound medical advice over the phone. For these safety reasons, if you call for medical advice we will ask you to come to the ED for further evaluation. 3. If you have any questions regarding these discharge instructions please call the ED at [phone]. SAFETY INFORMATION: In the interest of safety, wellness, and injury prevention; we encourage you to wear your sealbelt, if you smoke; quite smoking, and we encourage family to use a protective helmet for bicycling and other sporting events that present an increased risk for head injury. IF YOUR SYMPTOMS WORSEN OR NEW SYMPTOMS DEVELOP, OR YOU HAVE CONCERNS ABOUT YOUR CONDITION; OR IF YOUR CONDITION WORSENS WHILE YOU ARE WAITING FOR YOUR FOLLOW UP APPOINTMENT; EITHER CONTACT YOUR PRIMARY CARE DOCTOR, THE PHYSICIAN WHOSE NAME AND NUMBER YOU WERE GIVEN, OR RETURN TO THE ED IMMEDIATELY. HERNANDO COTTRELL DO Jun 18, 2021 12:56
[2021-06-18] MEDS ORDERED: levETIRAcetam 1,000 MG in IV DEXTROSE 5% 100ML 100 ML IV ONE (13:00)
[2021-06-18 13:11] LABS: BASO # 0.1 x10^3/uL (0.0-0.2); BASO % 1 % (0-3); EOS # 0.3 x10^3/uL (0.0-0.7); EOS % 2 % (0-3); HEMATOCRIT 49.5 % (39.0-53.0); LYMPH # 2.8 x10^3/uL (1.0-4.8); LYMPH % 17 % (24-48); MEAN CORPUSCULAR HEMOGLOBIN 22 pg (25-35); MEAN CORPUSCULAR HGB CONC 30 g/dL (31-37); MEAN CORPUSCULAR VOLUME 71 fL (79-100); MONO % 6 % (0-9); NEUT # 12.8 x10^3/uL (1.8-7.7); NEUT % 75 % (31-73); PLATELET COUNT 190 x10^3/uL (140-400); RED BLOOD COUNT 6.97 x10^6/uL (4.30-5.70); RED CELL DISTRIBUTION WIDTH 17.2 % (11.5-14.5)
--- NOTE | 2021-06-18 13:13 | RAD ---
EXAM: Chest, single view. HISTORY: Headache. COMPARISON: 04/06/2021. FINDINGS: A frontal view of the chest is obtained. There is no infiltrate, pleural effusion or pneumo thorax. The heart is normal in size. IMPRESSION: No acute pulmonary finding. Electronically signed by: Skylar Gomez MD (06/18/2021 1:11 PM) [id number]
[2021-06-18 13:19] LABS: ALBUMIN 4.4 g/dL (3.4-5.0); ALBUMIN/GLOBULIN RATIO 1.2 (1.0-1.7); CALCIUM 8.8 mg/dL (8.5-10.1); CREATININE 1.5 mg/dL (0.7-1.3); GFR 64.1; POTASSIUM 3.4 mmol/L (3.5-5.1); TOTAL BILIRUBIN 0.7 mg/dL (0.2-1.0); TOTAL PROTEIN 8.2 g/dL (6.4-8.2)
--- NOTE | 2021-06-18 13:27 | RAD ---
CT head without contrast dated 06/18/2021 1:22 PM Comparison: 11/01/2020 CLINICAL INDICATION: Seizure TECHNIQUE: Contiguous axial imaging of the head was performed from skull base to vertex. One or more of the following individualized dose reduction techniques were utilized for this examinat ion: 1. Automated exposure control 2. Adjustment of the mA and/or kV according to patient size 3. Use of iterative reconstruction technique. FINDINGS: Ventricles and sulci are within normal limits for age. No midline shift or mass effect. Brain parench yma is of normal attenuation. No hemorrhage or extra-axial collection. Posterior fossa and brainstem unremarkable. Visualized paranasal sinuses and mastoid air cells are clear. No apparent calvarial abnormality. IMPRESSION: No evidence of acute intracranial abnormality. Electronically signed by: Bolivar Davis MD (06/18/2021 1:25 PM) [id number]
[2021-06-18 13:32] LABS: BILIRUBIN,URINE NEGATIVE (NEG); CLARITY,URINE CLEAR; COLOR,URINE YELLOW; NITRITE,URINE NEGATIVE (NEG); PROTEIN,URINE >=300 mg/dL (NEG-TRACE); UROBILINOGEN,URINE 0.2 mg/dL (0.2 mg/dL)
[2021-06-18 13:39] LABS: BARBITURATES NEG (NEG); BENZODIAZEPINES NEG (NEG); CANNABINOIDS POS (NEG); COCAINE NEG (NEG); METHADONE NEG (NEG); OPIATES NEG (NEG); PHENCYCLIDINE NEG (NEG)
[2021-06-18 13:40] LABS: AMPHETAMINE/METHAMPHETAMINE NEG (NEG); BACTERIA,URINE 0 /HPF (0-FEW); WBC,URINE 0 /HPF (0-4)
[2021-06-18 14:01] LABS: PLT ESTIMATE ADEQUATE (ADEQUATE)
[2021-06-18 14:03] LABS: ANISOCYTOSIS SLIGHT; HYPOCHROMIA SLIGHT; MICROCYTOSIS SLIGHT; SPHEROCYTES OCC; TARGET CELLS OCC
[2021-06-18] MEDS ORDERED: IV NORMAL SALINE 1000ML BAG 1,000 ML IV ONE (14:15)
[2021-06-18 15:38] VITALS: BP 176/120
[2021-06-18] MEDS ORDERED: IBUPROFEN 200 MG TABLET. PO ONE (16:31)
== END 2021-06-18 16:36 | disposition home or self-care (01) ==
LOC: ER 12:33
DX: G40.909 Epilepsy, unspecified, not intractable, without status epilepticus (principal); N28.9 Disorder of kidney and ureter, unspecified; I10 Essential (primary) hypertension; F17.200 Nicotine dependence, unspecified, uncomplicated
CPT/HCPCS: 36415; 70450; 71045; 80053; 80307; 81001; 84484; 85025; 96365; 96366; 99285; G0480; J1953; J7030; J7060; 96361